=== PATIENT | female | born 1945 | race Caucasian/White ===

== ENCOUNTER 2017-02-24 14:47 | Emergency (ER) | payer MEDICARE, BC ==
[~2017-02-24] VITALS: Ht 154.9 cm; Wt 7.7 kg
--- NOTE | ~2017-02-24 | CR157 ---
[facility] A Service of [facility] RADIOLOGY TEXT RESULTS PATIENT: CAMERON MOBLEY LOCATION: [facility] : 43 UNIT #: [id number] AGE: [address]: Jaswant Solorzano SEX: F ORDER DR: [id number] [facility] [address] [place], [place] [address] [id number] E MR#: [id number] Acc #: [id number] NAME: CAMERON MOBLEY. : 1945 SEX: F STUDY DATE/TIME: 02/24/2017 15:50 UNIT: [facility] ROOM: STUDY DESCRIPTION: CR Humerus Min 2 View Rt Attending Physician: Jaswant Solorzano Primary Care Physician: Max Smith M.D. MEDICAL IMAGING REPORT This report is preliminary unless electronic signature is present EXAM Right humerus HISTORY Fall today with upper right arm pain FINDINGS AP and lateral views of the humerus were obtained. There is an acute fracture involving the humeral neck. It appears to be slightly angulated on one of the views. The rest of the bone is normal. IMPRESSION Acute fracture through the humeral neck with slight angulation. Dictated by... Judson Ring M.D. THIS IS AN ELECTRONICALLY VERIFIED REPORT Judson Ring M.D. at 02/25/2017 8:03 AM SHERIN/bebeto TD: 02/25/2017 06:30 JOB #: [id number] MEDICAL IMAGING REPORT Page 1 of 1 COPY
[~2017-02-24 14:47] MED LIST: ACETAMINOPHEN PO; ADVAIR 2501 DISK W/D PO; ALBUTEROL17 GM; ALBUTEROL17 GM INH; ALL DAY ALLERGY10 M2 PO; ALL DAY ALLERGY10 M3 PO; ASPIRIN; ASPIRIN PO; ASPIRIN81 M1 PO; ATENOLOL PO; ATENOLOL50 MG PO; ATORVASTATIN CA40 MG PO; AVALIDE 300-251 TAB PO; AVAPRO; B COMPLEX1 TAB PO; CIPRO PO; CLOPIDOGREL75 MG PO; COZAAR PO; DARVOCET-N 1001 TAB PO; DEXILANT60 MG PO; DYAZIDE 37.5/251 CAP; FENOFIBRATE160 MG PO; FISH OIL 1,0001 CAP PO; FISH OIL500 MG PO; FLAGYL PO; FLEXERIL PO; FLONASE 0.05% N16 GM; FUROSEMIDE40 MG PO; HUMALOG100 U/ML; HUMULIN R100 U/ML SUBQ; HUMULIN R500 U/ML; JANUMET PO; JANUVIA50 MG PO; LASIX; LASIX PO; LASIX20 MG PO; LEVAQUIN PO; LEVEMIR; LIPITOR20 MG PO; LIPITOR40 MG PO; LISINOPRIL PO; LORTAB 7.5-3251 EACH PO; LOSARTAN POTAS100 MG PO; MA; METFORMIN; MIRALAX17 GM DOB; MULTI-DAY VITAM1 TAB PO; MULTIPLE VITAMI1 T13 PO; NABUMETONE; NIFEDIAC CC60 MG PO; NIFEDICAL PO; NIFEDIPINE ER60 M2 PO; NITROGYLCERIN SUBLINGUAL; NITROQUICK0.4 MG SL; OMEPRAZOLE40 MG PO; PLAQUENIL200 MG PO; PLAVIX PO; PREDNISONE PO; PREMARIN; PREVACID; PRILOSEC PO; SENNA PO; SIMVASTATIN40 MG PO; SULAR PO; SYNTHROID PO; SYNTHROID125 PO; TENORMIN50 MG PO; TRICOR; TRICOR PO; TRIGLIDE160 M1 PO; VIBRAMYCIN100 M1 PO; VIT B-12 PO; VITAMIN B-6200 MG PO; VITAMIN C500 M1; VITAMIN C500 M1 PO; VITAMIN D31000 UNI1 PO; VYTORIN 10/40 T1 TAB; VYTORIN 10/80 T1 TAB PO; ZETIA PO; ZYLOPRIM100 MG PO; ZYRTEC; ZYRTEC PO; [UNRECOGNIZED DRUG - CODE] PO; [UNRECOGNIZED DRUG - OTHER] PO
== END 2017-02-24 17:01 | disposition home or self-care (01) ==
LOC: CFTX 14:47 → CED 14:47 → CFTX 16:50
DX: S42.201A Unspecified fracture of upper end of right humerus, initial encounter for closed fracture (principal); I10 Essential (primary) hypertension; E11.9 Type 2 diabetes mellitus without complications; Z79.4 Long term (current) use of insulin; Z79.01 Long term (current) use of anticoagulants; Y92.009 Unspecified place in unspecified non-institutional (private) residence as the place of occurrence of the external cause; Z88.0 Allergy status to penicillin; Z88.5 Allergy status to narcotic agent; W18.30XA Fall on same level, unspecified, initial encounter; Z79.899 Other long term (current) drug therapy
CPT/HCPCS: 73060; 99283